=== PATIENT | male | born 1950 | race African-American/Black ===

== ENCOUNTER 2017-03-26 17:53 | Emergency (ER) | payer MEDICARE ==
[~2017-03-26] VITALS: Ht 170.2 cm; Wt 63.0 kg
[2017-03-26] MEDS ORDERED: CARI350T PO (17:59)
[2017-03-26] MEDS ORDERED: HYDR-519 PO (17:59)
[2017-03-26] MEDS ORDERED: ONDANSETRON 4MG ODT PO NR (23:04)
[2017-03-26] MEDS ORDERED: KETOROLAC 30MG/ML VIAL IM NR (23:04)
[2017-03-26 23:26] LABS: CLARITY URINE CLEAR (CLEAR); COLOR URINE YELLOW (YELLOW); GLUCOSE URINE NEGATIVE (NEGATIVE); KETONES URINE NEGATIVE (NEGATIVE); LEUKOCYTE ESTERASE URINE NEGATIVE (NEGATIVE); NITRITE URINE NEGATIVE (NEGATIVE); OCCULT BLOOD URINE NEGATIVE (NEGATIVE); PH URINE 6.5 (4.5-8.0); PROTEIN URINE NEGATIVE (NEGATIVE); SPECIFIC GRAVITY URINE 1.034 (1.005-1.030)
[2017-03-26 23:36] LABS: *AMPHETAMINES SCREEN URINE NEGATIVE (NEGATIVE); *BARBITURATES SCREEN URINE NEGATIVE (NEGATIVE); *BENZODIAZEPINES SCREEN URINE NEGATIVE (NEGATIVE); *COCAINE SCREEN URINE NEGATIVE (NEGATIVE); CANNABINOID URINE SCREEN NEGATIVE (NEGATIVE); METHADONE URINE SCREEN NEGATIVE (NEGATIVE); OPIATES URINE SCREEN PRESUMTIVE POSITIVE (NEGATIVE); PHENCYCLIDINE URINE SCREEN NEGATIVE (NEGATIVE)
[2017-03-27 00:29] LABS: BASOPHILS % 0.5 % (0.0-2.0); EOSINOPHILS % 5.6 % (0.0-5.0); HEMATOCRIT. 37.3 % (42.0-52.0); HEMOGLOBIN. 12.3 g/dL (14.0-18.0); MEAN CORPUSCULAR HEMOGLOBIN 30.9 pg (28.0-32.0); MEAN PLATELET VOLUME 8.4 fl (7.4-10.4); NEUTROPHILS % 41.9 % (40.0-76.0); PLATELET 222 x1000/uL (130-400); RED BLOOD CELL COUNT 3.97 mill/uL (4.7-6.1)
[2017-03-27 00:53] LABS: CHLORIDE 108 mEq/L (98-107)
[2017-03-27 01:04] LABS: CARBON DIOXIDE 30 mEq/L (21-32); ETHANOL BLOOD < 10 mg/dL
[2017-03-27] MEDS ORDERED: ACETAMINOPHEN 325MG TABLET PO ONE (12:15)
[2017-03-27] MEDS: HYDROCODONE/ACETAMINOPHEN 10/325MG TABLET PO PRN (22:51)
[2017-03-28] MEDS: HYDROCODONE/ACETAMINOPHEN 10/325MG TABLET PO PRN ×2 (09:35→15:19)
[2017-03-28 16:00] VITALS: BP 130/90
== END 2017-03-28 18:38 | disposition home or self-care (01) ==
LOC: ER 17:53
DX: R45.851 Suicidal ideations (principal); F11.20 Opioid dependence, uncomplicated; G89.29 Other chronic pain; M54.5 Low back pain; Z98.890 Other specified postprocedural states
CPT/HCPCS: 36415; 80053; 80305; 80307; 80329; 81003; 83690; 85025; 93005; 96372; 99285; G0482; J1885; Q0162